=== PATIENT | female | born 1940 | race Hispanic/Latino ===

== ENCOUNTER 2017-03-17 18:53 | Inpatient (IN) | payer MEDICARE, OTHER ==
[2017-03-17] MEDS ORDERED: Sodium Chloride 0.9% 1,000 ML IV STA (19:23)
[2017-03-17 19:26] LABS: ADD MANUAL DIFF? NO
--- NOTE | 2017-03-17 19:26 | ED PDOC ---
Arrival/HPI - General Chief Complaint: GI Problem Time Seen by Provider: 03/17/17 19:09 Historian: Patient - History of Present Illness Narrative History of Present Illness (Text): 03/17/17 19:05 Анна Duron is a 76 year old female, whose past medical history includes hypertension, who presents to the Emergency department complaining of sudden onset of rectal bleeding 1 hour prior to arrival. Patient states she still feels mild oozing that is persistent. Patient reports associated cramping abdominal discomfort. Patient denies any nausea, vomiting, fever, or any other complaints. Patient also complaining of some chest tightness and shortness of breath. Time/Duration: 1 hour Symptom Onset: Sudden Symptom Course: Unchanged Activities at Onset: Light Context: Home Past Medical History - Provider Review Nursing Documentation Reviewed: Yes - Infectious Disease Hx of Infectious Diseases: None - Tetanus Immunization Tetanus Immunization: Unknown - Cardiac Hx Cardiac Disorders: Yes Hx Hypertension: Yes - Pulmonary Hx Respiratory Disorders: No - Neurological Hx Neurological Disorder: No - HEENT Hx HEENT Disorder: No - Renal Hx Renal Disorder: No - Endocrine/Metabolic Hx Endocrine Disorders: No - Hematological/Oncological Hx Blood Disorders: No - Integumentary Hx Dermatological Disorder: No - Musculoskeletal/Rheumatological Hx Musculoskeletal Disorders: Yes Hx Arthritis: Yes Hx Falls: Yes Hx Fractures: Yes (left hip) Hx Unsteady Gait: Yes - Gastrointestinal Other/Comment: Diarrhea/blood stool - Genitourinary/Gynecological Hx Genitourinary Disorders: No - Psychiatric Hx Anxiety: Yes Hx Depression: Yes Hx Substance Use: No Other/Comment: stress, grandson recently - Surgical History Hx Cholecystectomy: Yes Other/Comment: left hip fx - Anesthesia Hx Anesthesia: Yes Hx Anesthesia Reactions: No Hx Malignant Hyperthermia: No - Suicidal Assessment Feels Threatened In Home Enviroment: No Family/Social History - Physician Review Nursing Documentation Reviewed: Yes Family/Social History: No Known Family HX Smoking Status: Never Smoked Hx Alcohol Use: No Hx Substance Use: No Hx Substance Use Treatment: No Allergies/Home Meds Allergies/Adverse Reactions: Allergies No Known Allergies Allergy (Verified 03/17/17 18:55) Home Medications: Home Meds Medication Instructions Recorded Confirmed Amlodipine Besylate/Benazepr 1 cap PO HS 07/28/14 03/17/17 [Lotrel 10 mg-20 mg] Review of Systems - Physician Review All systems were reviewed & negative as marked: Yes - Review of Systems Constitutional: Normal. absent: Fevers Eyes: Normal ENT: Normal Respiratory: SOB Cardiovascular: Chest Pain Gastrointestinal: Abdominal Pain, Other (+rectal bleeding) Genitourinary Female: Normal. absent: Dysuria Musculoskeletal: Normal. absent: Back Pain, Neck Pain Skin: Normal. absent: Rash Neurological: Normal. absent: Headache, Dizziness Endocrine: Normal Hemo/Lymphatic: Normal Psychiatric: Normal Physical Exam Vital Signs Reviewed: Yes Vital Signs Temp Pulse Resp BP Pulse Ox 03/17/17 20:02 187/92 H 03/17/17 18:58 97.9 F 79 16 243/98 H 99 Temperature: Afebrile Blood Pressure: Hypertensive Pulse: Regular Respiratory Rate: Normal Appearance: Positive for: Well-Appearing, Non-Toxic, Comfortable Pain Distress: None Mental Status: Positive for: Alert and Oriented X 3 - Systems Exam Head: Present: Atraumatic, Normocephalic Pupils: Present: PERRL Extroacular Muscles: Present: EOMI Conjunctiva: Present: Normal Mouth: Present: Moist Mucous Membranes Neck: Present: Normal Range of Motion Respiratory/Chest: Present: Clear to Auscultation, Good Air Exchange. No: Respiratory Distress, Accessory Muscle Use Cardiovascular: Present: Regular Rate and Rhythm, Normal S1, S2. No: Murmurs Abdomen: Present: Normal Bowel Sounds. No: Tenderness, Distention, Peritoneal Signs Rectal: Present: Gross Blood (Gross rectal blood present, minimal active bleeding) Upper Extremity: Present: Normal Inspection. No: Cyanosis, Edema Lower Extremity: Present: Normal Inspection. No: Edema Neurological: Present: GCS=15, CN II-XII Intact, Speech Normal Skin: Present: Warm, Dry, Normal Color. 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 Plan: -- EKG -- Chest X-ray -- Labs, cardiac enzymes, lipase, amylase, blood type and screen -- UA -- IV fluids -- Reassess and disposition Prior Visits: Notes and results from previous visits were reviewed. Progress Notes: 03/17/17 19:55 Reviewed radiology, Chest X-ray shows no active disease. Patient had a recurrent gush of BRBPR in the emergency depart Case was discussed with Dr. Yaniv Good, who is aware and agrees with plan. Requests Dr. Mills and Dr. Sen on consult. 03/17/17 20:[address] Mills GI, who agrees with bleeding scan. Recommends NG-tube lavage if bleeding scan in negative. 03/17/17 20:01 Spoke with rn surgical pcu conveyor maintenance mechanic, who is aware and agrees with plan. 03/17/17 22:57 Patient had another episode of bleeding in Bleeding scan. Repeat CBC was hemolyzed - will obtain another specimen for repeat H/H. Case was discussed with Dr. Kelly for ICU Consult. - Critical Care Critical Care Minutes: 30 minutes - Lab Interpretations Lab Results: 03/17/17 19:07 03/17/17 19:07 Lab Results 03/17/17 19:55: Blood Type O POSITIVE, Antibody Screen Negative, BBK History Checked Patient has bt 03/17/17 19:07: Sodium 143, Potassium 3.7, Chloride 108 H, Carbon Dioxide 24, Anion Gap 15, BUN 16, Creatinine 0.8, Est GFR ( Amer) > 60, Est GFR (Non- Af Amer) > 60, Random Glucose 109, Calcium 11.5 H, Total Bilirubin 0.6, AST 22, ALT 26, Alkaline Phosphatase 117, Lactate Dehydrogenase 560, Total Creatine Kinase 71, Troponin I < 0.01, Total Protein 7.5, Albumin 4.3, Globulin 3.3, Albumin/Globulin Ratio 1.3, Amylase 73, Lipase 82 03/17/17 19:07: PT 10.4, INR 0.96, APTT 25.2 03/17/17 19:07: WBC 5.7 D, RBC 4.69, Hgb 14.0, Hct 41.3, MCV 88.1, MCH 29.9, MCHC 33.9, RDW 13.9, Plt Count 206, MPV 11.4 H, Gran % 50.1, Lymph % (Auto) 36.5 H, [place] % (Auto) 9.2 H, Eos % (Auto) 3.7, Baso % (Auto) 0.5, Gran # 2.84, Lymph # 2.1, [place] # 0.5, Eos # 0.2, Baso # 0.03 I have reviewed the lab results: Yes - RAD Interpretation Radiology Orders: 03/17/17 19:20 CHEST PORTABLE [RAD] Stat 03/17/17 19:55 GI BLEEDING SCAN W/ FLOW [NM] Stat Costumed Character: ED Physician - EKG Interpretation EKG Interpretation (Text): 03/17/17 22:59 NSR @ 70; no ST/T changes; normal intervals; normal axis. Interpreted by ED Physician: Yes Type: 12 lead EKG - Medication Orders Current Medication Orders: Discontinued Medications Sodium Chloride (Sodium Chloride 0.9%) 1,000 mls @ 999 mls/hr IV .Q1H1M STA Stop: 03/17/17 20:23 Last Admin: 03/17/17 19:30 Dose: 999 mls/hr Iohexol (Omnipaque 350 100 Ml) Confirm Administered Dose 350 mg .ROUTE .STK-MED ONE Stop: 03/17/17 20:08 - Scribe Statement The provider has reviewed the documentation as recorded by the Scribrajiv Bolanos All medical record entries made by the Alvertoibrajiv were at my direction and personally dictated by me. I have reviewed the chart and agree that the record accurately reflects my personal performance of the history, physical exam, medical decision making, and the department course for this patient. I have also personally directed, reviewed, and agree with the discharge instructions and disposition. Disposition/Present on Arrival - Present on Arrival Any Indicators Present on Arrival: No History of DVT/PE: No History of Uncontrolled Diabetes: No Urinary Catheter: No History of Decub. Ulcer: No History Surgical Site Infection Following: Orthopedic Procedures - Disposition Have Diagnosis and Disposition been Completed?: Yes Diagnosis: Rectal bleed Disposition: HOSPITALIZED Disposition Time: 21:50 Patient Plan: Admission Patient Problems: Current Active Problems Problem Status Onset Rectal bleed Acute Condition: SERIOUS
[2017-03-17 19:34] LABS: BASO # 0.03 K/mm3 (0.0-2.0); BASO % 0.5 % (0.0-3.0); EOS # 0.2 (0.0-0.7); EOS % 3.7 % (1.5-5.0); GRAN # 2.84 (1.4-6.5); GRAN % 50.1 % (50.0-68.0); HEMATOCRIT 41.3 % (36.0-48.0); LYMPH # 2.1 (1.2-3.4); LYMPH % 36.5 % (22.0-35.0); MEAN CELL VOLUME 88.1 fL (80.0-105.0); MEAN CORPUSCULAR HEMOGLOBIN 29.9 pg (25.0-35.0); MEAN CORPUSCULAR HGB CONC 33.9 g/dl (31.0-37.0); MEAN PLATELET VOLUME 11.4 fl (7.0-11.0); MONO # 0.5 (0.1-0.6); MONO % 9.2 % (1.0-6.0); PLATELET COUNT 206 10^3/uL (120.0-450.0); RED CELL DISTRIBUTION WIDTH 13.9 % (11.5-14.5); WHITE BLOOD COUNT 5.7 10^3/ul (4.5-11.0)
[2017-03-17 19:41] LABS: ALB/GLOB RATIO 1.3 (1.1-1.8); ALKALINE PHOSPHATASE 117 U/L (38-133); ALT/SGPT 26 U/L (7-56); AMYLASE 73 U/L (35-125); AST/SGOT 22 U/L (15-39); BILIRUBIN,TOTAL 0.6 mg/dL (0.2-1.3); BLOOD UREA NITROGEN 16 mg/dL (7-21); CALCIUM 11.5 mg/dL (8.4-10.5); CARBON DIOXIDE 24 mmol/L (21-33); CHLORIDE 108 mmol/L (98-107); GFR AFRICAN-AMERICAN > 60; GLUCOSE,RANDOM 109 mg/dL (70-110); INR 0.96 (0.93-1.08); LIPASE 82 U/L (23-300); PARTIAL THROMBOPLASTIN TIME 25.2 Seconds (23.7-30.8); POTASSIUM 3.7 mmol/L (3.6-5.0); SODIUM 143 mmol/L (132-148); TOTAL PROTEIN 7.5 g/dL (5.8-8.3)
[2017-03-17 19:53] LABS: TROPONIN I < 0.01 ng/mL
[2017-03-17] MEDS ORDERED: Iohexol 350 MG/100 ML VIAL ONE (20:07)
--- NOTE | 2017-03-17 20:48 | CP.PCM.CON ---
History of Present Illness - History of Present Illness History of Present Illness: Surgery Consult: Dr. Sen Pt is a 76F with PMHx of HTN & arthritis who presented to [facility] [place] for bright red blood per rectum. Pt states that earlier this evening she felt an urge to have a BM and felt a gush of fluid which was blood. States she saw bright red blood in the toilet bowl with dark clots mixed in. She also admits to having some lower abdominal pain which prompted her to call her PMD and she was instructed to come to the ER. Pt admits to having a similar episode in the past, but it wasn't as severe and she was told at the time she had hemorrhoids. In the ER, pt had another episode of bloody discharge per rectum. She denies any other associated symptoms and states her abdominal discomfort which was mostly supra-pubic has now resolved. Pt states her last colonoscopy was 5-6 years ago and was normal. She admits to occasional constipation. Denies N/V, F/C , chest pain, SOB or dizziness. PMHx: HTN, arthritis PSHx: Left hip replacement, R shoulder sx, cholecystectomy, R breast cyst excision SocialHx: denies smoking, EtOH NKDA Review of Systems - Review of Systems All systems: reviewed and no additional remarkable complaints except (as per HPI ) Past Patient History - Infectious Disease Hx of Infectious Diseases: None - Tetanus Immunizations Tetanus Immunization: Unknown - Past Social History Smoking Status: Never Smoked - CARDIAC Hx Cardiac Disorders: Yes Hx Hypertension: Yes - PULMONARY Hx Respiratory Disorders: No - NEUROLOGICAL Hx Neurological Disorder: No - HEENT Hx HEENT Problems: No - RENAL Hx Chronic Kidney Disease: No - ENDOCRINE/METABOLIC Hx Endocrine Disorders: No - HEMATOLOGICAL/ONCOLOGICAL Hx Blood Disorders: No - INTEGUMENTARY Hx Dermatological Problems: No - MUSCULOSKELETAL/RHEUMATOLOGICAL Hx Musculoskeletal Disorders: Yes Hx Arthritis: Yes Hx Falls: Yes Hx Fractures: Yes (left hip) Hx Unsteady Gait: Yes - GASTROINTESTINAL Other/Comment: Diarrhea/blood stool - GENITOURINARY/GYNECOLOGICAL Hx Genitourinary Disorders: No - PSYCHIATRIC Hx Anxiety: Yes Hx Substance Use: No - SURGICAL HISTORY Hx Cholecystectomy: Yes Other/Comment: left hip fx - ANESTHESIA Hx Anesthesia: Yes Hx Anesthesia Reactions: No Hx Malignant Hyperthermia: No Meds Allergies/Adverse Reactions: Allergies Allergy/AdvReac Type Severity Reaction Status Date / Time No Known Allergies Allergy Verified 03/17/17 18:55 Physical Exam - Constitutional Appears: Well, No Acute Distress - Head Exam Head Exam: ATRAUMATIC, NORMOCEPHALIC - Eye Exam Eye Exam: Normal appearance - ENT Exam ENT Exam: Mucous Membranes Moist - Respiratory Exam Respiratory Exam: NORMAL BREATHING PATTERN - Cardiovascular Exam Cardiovascular Exam: RRR - GI/Abdominal Exam GI & Abdominal Exam: Soft, Tenderness (LLQ). absent: Distended, Guarding, Rebound - Rectal Exam Rectal Exam: Hemorrhoids Additional comments: BRBPR - Extremities Exam Extremities exam: Negative for: tenderness - Neurological Exam Neurological exam: Alert, Oriented x3 - Skin Skin Exam: Dry, Warm Results - Vital Signs Recent Vital Signs: Last Vital Signs Temp 97.9 F 03/17/17 18:58 Pulse 79 03/17/17 18:58 Resp 16 03/17/17 18:58 BP 187/92 H 03/17/17 20:02 Pulse Ox 99 03/17/17 18:58 - Labs Result Diagrams: 03/17/17 19:07 03/17/17 19:07 Labs: Laboratory Results - last 24 hr 03/17/17 03/17/17 03/17/17 19:07 19:07 19:07 WBC 5.7 D RBC 4.69 Hgb 14.0 Hct 41.3 MCV 88.1 MCH 29.9 MCHC 33.9 RDW 13.9 Plt Count 206 MPV 11.4 H Gran % 50.1 Lymph % (Auto) 36.5 H [place] % (Auto) 9.2 H Eos % (Auto) 3.7 Baso % (Auto) 0.5 Gran # 2.84 Lymph # 2.1 [place] # 0.5 Eos # 0.2 Baso # 0.03 PT 10.4 INR 0.96 APTT 25.2 Sodium 143 Potassium 3.7 Chloride 108 H Carbon Dioxide 24 Anion Gap 15 BUN 16 Creatinine 0.8 Est GFR ( Amer) > 60 Est GFR (Non-Af Amer) > 60 Random Glucose 109 Calcium 11.5 H Total Bilirubin 0.6 AST 22 ALT 26 Alkaline Phosphatase 117 Lactate Dehydrogenase 560 Total Creatine Kinase 71 Troponin I < 0.01 Total Protein 7.5 Albumin 4.3 Globulin 3.3 Albumin/Globulin Ratio 1.3 Amylase 73 Lipase 82 BBK History Checked 03/17/17 19:55 WBC RBC Hgb Hct MCV MCH MCHC RDW Plt Count MPV Gran % Lymph % (Auto) [place] % (Auto) Eos % (Auto) Baso % (Auto) Gran # Lymph # [place] # Eos # Baso # PT INR APTT Sodium Potassium Chloride Carbon Dioxide Anion Gap BUN Creatinine Est GFR ( Amer) Est GFR (Non-Af Amer) Random Glucose Calcium Total Bilirubin AST ALT Alkaline Phosphatase Lactate Dehydrogenase Total Creatine Kinase Troponin I Total Protein Albumin Globulin Albumin/Globulin Ratio Amylase Lipase BBK History Checked Patient has bt Assessment & Plan - Assessment and Plan (Free Text) Assessment: 76F with GI bleed Plan: - H/H currently stable; continue to monitor serial H/H - f/u CT abdomen/pelvis - f/u bleeding scan - GI is on board - Will continue to monitor closely along with GI incase surgical intervention is needed - d/w Dr. Mckinley Richards, PGY-2 Surgery
[2017-03-17 23:39] LABS: ADD MANUAL DIFF? NO
[2017-03-17 23:58] LABS: BASO # 0.02 K/mm3 (0.0-2.0); BASO % 0.4 % (0.0-3.0); EOS # 0.2 (0.0-0.7); EOS % 4.6 % (1.5-5.0); GRAN # 3.02 (1.4-6.5); HEMATOCRIT 37.4 % (36.0-48.0); LYMPH # 1.4 (1.2-3.4); LYMPH % 27.6 % (22.0-35.0); MEAN CELL VOLUME 87.8 fL (80.0-105.0); MEAN CORPUSCULAR HEMOGLOBIN 29.3 pg (25.0-35.0); MEAN CORPUSCULAR HGB CONC 33.4 g/dl (31.0-37.0); MEAN PLATELET VOLUME 11.4 fl (7.0-11.0); MONO # 0.5 (0.1-0.6); MONO % 9.4 % (1.0-6.0); PLATELET COUNT 184 10^3/uL (120.0-450.0); RED CELL DISTRIBUTION WIDTH 13.9 % (11.5-14.5); WHITE BLOOD COUNT 5.2 10^3/ul (4.5-11.0)
[2017-03-18] MEDS: Sodium Chloride 0.9% 1,000 ML IV SCH ×2 (01:00→16:26)
[2017-03-18] MEDS: Pantoprazole 40mg/100ml IVPB 40 MG/100 ML BAG IVPB SCH ×5 (01:00→23:30)
--- NOTE | 2017-03-18 01:43 | CP.PCM.CON ---
<Klaus Martinez - Last Filed: 03/18/17 01:27> History of Present Illness - History of Present Illness History of Present Illness: ICU Consult Note for Dr. Kelly 76 y/o F with PMH of HTN and osteoarthritis presents to the ED after bloody bowel movement at home. Pt was at home when she felt like she had gas. Pt felt like she had some incontinence and went to bathroom and noticed there was blood all over her underwear and clothes. Pt immediately called her PMD who advised her to come to the hospital. At home, pt had 4 total episodes of bright red bloody bowel movements. Pt did not have any pain, dizziness, or weakness associated with bowel movements. In the ED, pt had 3 more bouts of bloody bowel movements. Pt also at this time did not develop any other symptoms or have any complaints. Pt denies CP, SOB, N/V/D, dizziness, syncope, fatigue. PMH: HTN, Osteoarthritis Surgical Hx: Left hip replacement, cholecystectomy Social Hx: Denies Alcohol, drugs, or tobacco. Allergies: NKDA Medication: Lotrel Review of Systems - Constitutional Constitutional: absent: Fatigue, Fever - EENT Eyes: absent: Blurred Vision, Change in Vision Nose/Mouth/Throat: absent: Nasal Congestion, Nasal Discharge - Cardiovascular Cardiovascular: absent: Chest Pain, Irregular Heart Rhythm - Respiratory Respiratory: absent: Cough, Dyspnea - Gastrointestinal Gastrointestinal: absent: Abdominal Pain, Diarrhea, Vomiting - Genitourinary Genitourinary: absent: Dysuria, Hematuria - Integumentary Integumentary: absent: New Lesions, Rash - Neurological Neurological: absent: Numbness, Syncope, Tingling Past Patient History - Infectious Disease Hx of Infectious Diseases: None - Tetanus Immunizations Tetanus Immunization: Unknown - Past Social History Smoking Status: Never Smoked - CARDIAC Hx Cardiac Disorders: Yes Hx Hypertension: Yes - PULMONARY Hx Respiratory Disorders: No - NEUROLOGICAL Hx Neurological Disorder: No - HEENT Hx HEENT Problems: No - RENAL Hx Chronic Kidney Disease: No - ENDOCRINE/METABOLIC Hx Endocrine Disorders: No - HEMATOLOGICAL/ONCOLOGICAL Hx Blood Disorders: No - INTEGUMENTARY Hx Dermatological Problems: No - MUSCULOSKELETAL/RHEUMATOLOGICAL Hx Musculoskeletal Disorders: Yes Hx Arthritis: Yes Hx Falls: Yes Hx Fractures: Yes (left hip) Hx Unsteady Gait: Yes - GASTROINTESTINAL Other/Comment: Diarrhea/blood stool - GENITOURINARY/GYNECOLOGICAL Hx Genitourinary Disorders: No - PSYCHIATRIC Hx Anxiety: Yes Hx Depression: Yes Hx Substance Use: No Other/Comment: stress, grandson recently - SURGICAL HISTORY Hx Cholecystectomy: Yes Other/Comment: left hip fx - ANESTHESIA Hx Anesthesia: Yes Hx Anesthesia Reactions: No Hx Malignant Hyperthermia: No Meds Allergies/Adverse Reactions: Allergies Allergy/AdvReac Type Severity Reaction Status Date / Time No Known Allergies Allergy Verified 03/17/17 18:55 - Medications Medications: Current Medications Hydralazine HCl (Apresoline) 10 mg IVP Q6 PRN PRN Reason: Systolic Blood Pressure Pantoprazole Sodium (Protonix 40mg Ivpb) 40 mg in 100 mls @ 20 mls/hr IVPB .Q5H [facility] Sodium Chloride (Sodium Chloride 0.9%) 1,000 mls @ 100 mls/hr IV .Q10H [facility] Ondansetron HCl (Zofran Inj) 4 mg IVP Q4H PRN PRN Reason: Nausea/Vomiting Physical Exam - Constitutional Appears: Well, No Acute Distress - Head Exam Head Exam: ATRAUMATIC, NORMAL INSPECTION, NORMOCEPHALIC - Eye Exam Eye Exam: EOMI, Normal appearance, PERRL - ENT Exam ENT Exam: Mucous Membranes Moist, Normal Exam - Neck Exam Neck exam: Positive for: Normal Inspection. Negative for: Lymphadenopathy - Respiratory Exam Respiratory Exam: Clear to Auscultation Bilateral, NORMAL BREATHING PATTERN. absent: Rales, Rhonchi, Wheezes - Cardiovascular Exam Cardiovascular Exam: RRR, +S1, +S2 - GI/Abdominal Exam GI & Abdominal Exam: Normal Bowel Sounds, Soft. absent: Tenderness - Extremities Exam Extremities exam: Positive for: normal inspection. Negative for: calf tenderness, pedal edema - Neurological Exam Neurological exam: Alert, CN II-XII Intact, Oriented x3 - Psychiatric Exam Psychiatric exam: Normal Affect, Normal Mood - Skin Skin Exam: Intact, Normal Color, Warm Results - Vital Signs Recent Vital Signs: Last Vital Signs Temp 97.7 F 03/17/17 23:30 Pulse 81 03/17/17 23:30 Resp 18 03/17/17 23:30 BP 199/94 H 03/17/17 23:30 Pulse Ox 99 03/17/17 23:30 - Labs Result Diagrams: 03/17/17 23:32 03/17/17 19:07 Labs: Laboratory Results - last 24 hr 03/17/17 23:32 WBC 5.2 RBC 4.26 Hgb 12.5 Hct 37.4 MCV 87.8 MCH 29.3 MCHC 33.4 RDW 13.9 Plt Count 184 MPV 11.4 H Gran % 58.0 Lymph % (Auto) 27.6 [place] % (Auto) 9.4 H Eos % (Auto) 4.6 Baso % (Auto) 0.4 Gran # 3.02 Lymph # 1.4 [place] # 0.5 Eos # 0.2 Baso # 0.02 Assessment & Plan - Assessment and Plan (Free Text) Plan: 76 y/o F with PMH of HTN and osteoarthritis presents to the ED with lower GI bleed. Pt received a GI bleed scan which showed a possible atypical rectal bleed (See full report). Pt also underwent a CT of abdomen/pelvis which showed sigmoid diverticuli and possible active rectal hemorrhage (See full report). According to surgery, pt is not a surgical candidate at this time. Pt will be monitored and surgery team will await recommendations of GI team and future colonoscopy. Pt will be admitted to the ICU for further monitoring of active lower GI bleed. Pt will be placed on protonix drip and have serial CBC's to monitor hemoglobin. Pt will be transfused if hg continues to drop. Neuro: AAOx3 Monitor for change in mental status Cardio: Hypertensive in ED Hydralazine prn Will restart home meds once pt is no longer NPO Maintain MAP >65 Hemodynamically stable at this time Pulm: No respiratory distress Maintain O2 sat >90% GI: NPO Protonix drip Monitor for bloody bowel movements Scans as stated above Will trend Hg Dr. Mills consulted Surgery, Dr. Sen consulted. Not a surgical candidate at this time Endo: Maintain euglycemia Nephro: Replace electrolytes as needed NS @ 100 Maintain euvolemia Heme/ID: Afebrile, no leukocytosis CBC q4h Monitor hg, will transfuse if Hg continues to fall Maintain normothermia PPX: Protonix drip Steven Blackman Seen, reviewed, and discussed with attending Juan, PGY-1 <Brandon Kelly Q - Last Filed: 03/18/17 03:28> Meds - Medications Medications: Current Medications Hydralazine HCl (Apresoline) 10 mg IVP Q6 PRN PRN Reason: Systolic Blood Pressure Pantoprazole Sodium (Protonix 40mg Ivpb) 40 mg in 100 mls @ 20 mls/hr IVPB .Q5H [facility] Last Admin: 03/18/17 01:00 Dose: 20 mls/hr Sodium Chloride (Sodium Chloride 0.9%) 1,000 mls @ 100 mls/hr IV .Q10H [facility] Last Admin: 03/18/17 01:00 Dose: 100 mls/hr Ondansetron HCl (Zofran Inj) 4 mg IVP Q4H PRN PRN Reason: Nausea/Vomiting Results - Vital Signs Recent Vital Signs: Last Vital Signs Temp 97.7 F 03/17/17 23:30 Pulse 81 03/18/17 02:41 Resp 18 03/18/17 02:41 BP 179/90 H 03/18/17 02:41 Pulse Ox 100 03/18/17 02:41 - Labs Result Diagrams: 03/17/17 23:32 03/17/17 19:07 Labs: Laboratory Results - last 24 hr 03/17/17 03/18/17 23:32 01:53 WBC 5.2 RBC 4.26 Hgb 12.5 Hct 37.4 MCV 87.8 MCH 29.3 MCHC 33.4 RDW 13.9 Plt Count 184 MPV 11.4 H Gran % 58.0 Lymph % (Auto) 27.6 [place] % (Auto) 9.4 H Eos % (Auto) 4.6 Baso % (Auto) 0.4 Gran # 3.02 Lymph # 1.4 [place] # 0.5 Eos # 0.2 Baso # 0.02 Urine Color Yellow Urine Appearance Clear Urine pH 7.0 Ur Specific [place] 1.010 Urine Protein Negative Urine Glucose (UA) Negative Urine Ketones Negative Urine Blood Trace-lysed H Urine Nitrate Negative Urine Bilirubin Negative Urine Urobilinogen 0.2 Ur Leukocyte Esterase Negative Urine RBC 0 - 2 Urine WBC 0 - 2 Ur Epithelial Cells 0 - 2 Attending/Attestation - Attestation I have personally seen and examined this patient.: Yes I have fully participated in the care of the patient.: Yes I have reviewed all pertinent clinical information: Yes Notes (Text): 03/18/17 03:24 I agree with the above mentioned note and exam by Dr. Martinez with the following additions/exceptions: 76 y/o pleasant Pashto female with a PMHx Htn, OA, internal hemorrhoids presents to the ED after 4 episodes of BRBPR some noted with dark clots. While in the ED patient had additional bloody bowel movements, however never had any episodes of hypotension, uncontrolled tachycardia, dyspnea or near syncope. She underwent a CT of the Abd/pelvis as well as a bleeding scan which reveal a lower source of rectal bleeding (possibly/likely her internal hemorrhoids). She is being hydrated with IVF, type'd and crossed; awaiting evaluation by GI. As for the Surgical service, they recommend further evaluation with a possible colonoscopy at this time. Hemodynamically stable at this time, will monitor closely; check cbc Q4h and transfuse as needed. Case discussed with Dr. Mendez (ED Physician) earlier labs and images reviewed (prelim readings for Abd/pelvis CT and bleeding scan reviewed) Total time of care: 35 minutes
[2017-03-18 01:58] LABS: URINE BILIRUBIN NEGATIVE (NEGATIVE); URINE BLOOD TRACE-LYSED (NEGATIVE); URINE GLUCOSE (UA) NEGATIVE (NEGATIVE); URINE KETONE NEGATIVE (NEGATIVE); URINE LEUKOCYTE ESTERASE NEGATIVE Leu/uL (NEGATIVE); URINE PROTEIN NEGATIVE mg/dL (<30 mg/dL); URINE UROBILINOGEN 0.2 E.U./dL (<1 E.U./dL)
[2017-03-18 02:14] LABS: URINE APPEARANCE CLEAR (CLEAR); URINE COLOR YELLOW (YELLOW)
[2017-03-18 02:25] LABS: URINE EPITHELIAL CELLS 0 - 2 /hpf (0-5); URINE RBC 0 - 2 /hpf (0-2); URINE WBC 0 - 2 /hpf (0-6)
[2017-03-18 04:24] VITALS: BMI 27.3
[2017-03-18 05:06] LABS: HEMATOCRIT 38.2 % (36.0-48.0); MEAN CELL VOLUME 87.4 fL (80.0-105.0); MEAN CORPUSCULAR HEMOGLOBIN 29.3 pg (25.0-35.0); MEAN CORPUSCULAR HGB CONC 33.5 g/dl (31.0-37.0); MEAN PLATELET VOLUME 11.5 fl (7.0-11.0); RED CELL DISTRIBUTION WIDTH 13.9 % (11.5-14.5); WHITE BLOOD COUNT 4.3 10^3/ul (4.5-11.0)
--- NOTE | 2017-03-18 08:09 | CT ---
PROCEDURE: CT Abdomen and Pelvis with and without IV contrast HISTORY: ABD CRAMPING WITH RECTAL BLEEDING COMPARISON: None. TECHNIQUE: 2.5 mm axial sections were acquired through the abdomen both prior to and following intravenous administration of contrast material. Contrast dose: 95 mL Omnipaque 350 Radiation dose: Total exam DLP = 1673.64 mGy-cm. This CT exam was performed using one or more of the following dose reduction techniques: Automated exposure control, adjustment of the mA and/or kV according to patient size, and/or use of iterative reconstruction technique. FINDINGS: LOWER THORAX: Several small nodules in both lower lobes, all 4 mm or less, unchanged. There is an 8 mm ground-glass opacity in the left lower lobe (series 2, image 22). This has questionably increased slightly in size from prior examination. There is a small solid component of this nodule. Because of this, followup noncontrast CT examination at 3 6 months is advised. This is as per Fleischner society criteria. Small hiatal hernia. LIVER: Normal size, contour and attenuation. Nonspecific 2 mm low-attenuation lesion in medial segment left hepatic lobe. GALLBLADDER AND BILE DUCTS: Status post cholecystectomy PANCREAS: Unremarkable. No gross lesion or ductal dilatation. SPLEEN: Unremarkable. ADRENALS: 10 mm low-density left adrenal nodule, 12 Hounsfield units. Consistent with adrenal adenoma. KIDNEYS AND URETERS: 3 mm nonobstructing left lower pole renal calculus. Right upper pole cortical cyst, 9 mm. Left lower pole cortical cyst, 7 mm. No hydronephrosis. VASCULATURE: Unremarkable. No aortic aneurysm. BOWEL: Mild mucosal thickening of gastric cardia common nonspecific. This could be artifactual due to inadequate distention. No bowel obstruction. Sigmoid diverticulosis without evidence of diverticulitis. There is retained high attenuation material, possibly oral contrast, within multiple sigmoid diverticulae. On postcontrast images, there is questionable focal enhancement seen on 113 through 115. This could represent post contrast blush of active hemorrhage or enhancing polyp. APPENDIX: Normal appendix. PERITONEUM: Unremarkable. No free fluid. No free air. LYMPH NODES: Unremarkable. No enlarged lymph nodes. BLADDER: Unremarkable. REPRODUCTIVE: Normal uterus. 3.3 cm right adnexal mass (series 5, image 124). Possibly this represents ovary. Recommend further evaluation with transvaginal pelvic ultrasound examination. BONES: No acute fracture. Thoracolumbar levoscoliosis. Multilevel degenerative disc disease. OTHER FINDINGS: None. IMPRESSION: Small focal enhancement seen within sigmoid colon as described. Possible focal active hemorrhage versus enhancing polyp. Small nonspecific nodules at lung bases, do not require follow-up. However, ground-glass partially solid nodule in left lower lobe should be followed up with noncontrast chest CT examination in 3-6 months. Small hiatal hernia. Possible mucosal thickening of gastric cardia. Nonspecific. 3.3 cm right adnexal mass. Recommend evaluation with transvaginal pelvic ultrasound examination. Preliminary interpretation of this examination was reported by [facility] at 11:50 p.m. on 03/17/2017. There is concurrence of this report with the preliminary interpretation.
--- NOTE | 2017-03-18 08:25 | RAD ---
HISTORY: shortness of breath chest tight COMPARISON: 12/25/2015 FINDINGS: LUNGS: No active pulmonary disease. PLEURA: No significant pleural effusion identified, no pneumothorax apparent. CARDIOVASCULAR: Normal. OSSEOUS STRUCTURES: No significant abnormalities. VISUALIZED UPPER ABDOMEN: Normal. OTHER FINDINGS: None. IMPRESSION: No active disease.
[2017-03-18 08:49] LABS: HEMATOCRIT 38.2 % (36.0-48.0); MEAN CELL VOLUME 87.2 fL (80.0-105.0); MEAN CORPUSCULAR HEMOGLOBIN 29.2 pg (25.0-35.0); MEAN CORPUSCULAR HGB CONC 33.5 g/dl (31.0-37.0); MEAN PLATELET VOLUME 12.5 fl (7.0-11.0); RED CELL DISTRIBUTION WIDTH 13.8 % (11.5-14.5); WHITE BLOOD COUNT 4.7 10^3/ul (4.5-11.0)
[2017-03-18 08:58] LABS: ALB/GLOB RATIO 1.2 (1.1-1.8); ALKALINE PHOSPHATASE 104 U/L (38-133); ALT/SGPT 28 U/L (7-56); AST/SGOT 18 U/L (15-39); BILIRUBIN,TOTAL 0.6 mg/dL (0.2-1.3); BLOOD UREA NITROGEN 10 mg/dL (7-21); CALCIUM 10.2 mg/dL (8.4-10.5); CARBON DIOXIDE 24 mmol/L (21-33); CHLORIDE 109 mmol/L (98-107); GFR AFRICAN-AMERICAN > 60; GLUCOSE,RANDOM 91 mg/dL (70-110); POTASSIUM 3.8 mmol/L (3.6-5.0); SODIUM 141 mmol/L (132-148); TOTAL PROTEIN 6.9 g/dL (5.8-8.3)
--- NOTE | 2017-03-18 09:44 | CP.PCM.PN ---
Subjective - Date & Time of Evaluation Date of Evaluation: 03/18/17 Time of Evaluation: 07:00 - Subjective Subjective: Surgery: Dr. Sen Pt seen and examined. No acute overnight events. States she's feeling ok however , continues to have bloody BMs. Denies other complaints at this time. Denies N/V , dizziness or lightheadedness. Objective - Vital Signs/Intake and Output Vital Signs (last 24 hours): Temp Pulse Resp BP Pulse Ox 98.4 F 95 H 17 187/86 H 100 03/18/17 04:26 03/18/17 07:20 03/18/17 07:20 03/18/17 06:53 03/18/17 02:41 Intake and Output: 03/18/17 03/18/17 06:59 18:59 Intake Total 300 Output Total 450 Balance -150 - Medications Medications: Current Medications Hydralazine HCl (Apresoline) 10 mg IVP Q6 PRN PRN Reason: Systolic Blood Pressure Last Admin: 03/18/17 03:33 Dose: 10 mg Pantoprazole Sodium (Protonix 40mg Ivpb) 40 mg in 100 mls @ 20 mls/hr IVPB .Q5H IRVIN Last Admin: 03/18/17 07:02 Dose: 20 mls/hr Sodium Chloride (Sodium Chloride 0.9%) 1,000 mls @ 100 mls/hr IV .Q10H IRVIN Last Admin: 03/18/17 01:00 Dose: 100 mls/hr Ondansetron HCl (Zofran Inj) 4 mg IVP Q4H PRN PRN Reason: Nausea/Vomiting - Labs Labs: 03/18/17 08:40 03/18/17 08:40 PT 10.4 Seconds (9.9-11.8) 03/17/17 19:07 INR 0.96 (0.93-1.08) 03/17/17 19:07 APTT 25.2 Seconds (23.7-30.8) 03/17/17 19:07 - Constitutional Appears: Well, No Acute Distress - Head Exam Head Exam: ATRAUMATIC, NORMOCEPHALIC - ENT Exam ENT Exam: Mucous Membranes Moist - Respiratory Exam Respiratory Exam: NORMAL BREATHING PATTERN - Cardiovascular Exam Cardiovascular Exam: Tachycardia - GI/Abdominal Exam GI & Abdominal Exam: Soft. absent: Distended, Guarding, Tenderness - Extremities Exam Extremities Exam: absent: Tenderness - Neurological Exam Neurological Exam: Alert, Awake, Oriented x3 - Skin Skin Exam: Dry, Intact, Warm Assessment and Plan - Assessment and Plan (Free Text) Assessment: 76F with GI bleed Plan: - H/H continues to be stable; will monitor - bleeding scan showed possible small active bleed in rectum; will follow up official report - discuss plan with Dr. Mills regarding colonoscopy - d/w Dr. Mckinley Richards, PGY-2 Surgery
--- NOTE | 2017-03-18 10:39 | CARD ---
APPROVED REPORT EKG Measurement Heart [id number] [place] 166P9 [id number] <Conclusion> Sinus rhythm Minimal voltage criteria for LVH, may be normal variant
--- NOTE | 2017-03-18 10:56 | CARD ---
APPROVED REPORT EKG Measurement Heart [id number] [place] 172P61 [id number] <Conclusion> Sinus rhythm with premature atrial complexes LVH by voltage Q in 3
[2017-03-18 11:36] LABS: HEMATOCRIT 35.4 % (36.0-48.0); MEAN CELL VOLUME 87.2 fL (80.0-105.0); MEAN CORPUSCULAR HEMOGLOBIN 29.3 pg (25.0-35.0); MEAN CORPUSCULAR HGB CONC 33.6 g/dl (31.0-37.0); MEAN PLATELET VOLUME 11.2 fl (7.0-11.0); RED CELL DISTRIBUTION WIDTH 13.9 % (11.5-14.5); WHITE BLOOD COUNT 3.8 10^3/ul (4.5-11.0)
[2017-03-18 11:37] LABS: VENOUS BLOOD GAS BASE EXCESS 0.1 mmol/L (0.0-2.0); VENOUS BLOOD PH 7.36 (7.32-7.43)
--- NOTE | 2017-03-18 12:16 | CON ---
DATE: 03/18/2017 HISTORY OF PRESENT ILLNESS: The patient is a 76-year-old lady without significant past medical history except for hypertension who presented to [facility] with sudden onset of bright red blood per rectum yesterday. She did not experience any lightheadedness, dizziness, shortness of breath or chest pain associated with it. She had 1 episode last year similar to that, but not to the same extent. The patient came to [facility] ER where GI bleeding scan as well as CAT scan was done, which confirmed lower gastrointestinal bleed. Surgical as well as GI consult was called. The patient did not have any signs of end organ dysfunction or hypovolemic shock. VBG with lactic acid is pending; however, troponin is negative, no chest pain, and EKG does not show specific signs of the chest pain. No nausea, no vomiting , no hemetemesis. PAST MEDICAL HISTORY: Hypertension. ALLERGIES: NKDA. SOCIAL HISTORY: The patient is a lifelong nonsmoker. No alcohol or illicit drug abuse. FAMILY HISTORY: Noncontributory. MEDICATIONS AT HOME: Lotrel. REVIEW OF SYSTEMS: Revealed 12 organ systems, other than mentioned in history of present illness is negative. PHYSICAL EXAMINATION: VITAL SIGNS: Heart rate 95, blood pressure 187/86, respiratory rate 17, oxygen saturation 100% on nasal cannula. HEAD AND NECK: Atraumatic. LUNGS: Clear to auscultation bilaterally. HEART: Regular rate and rhythm. S1, S2 normal. ABDOMEN: Soft, nontender, nondistended. MUSCULOSKELETAL: No C/C/E. NEUROLOGIC: The patient moves all extremities spontaneously. SKIN: Moist. PSYCHIATRIC: The patient is alert and oriented x 3. LABORATORY DATA: WBC 4.7, hemoglobin 12.8, platelet count 186. Sodium 141, potassium 3.8, chloride 109, carbon dioxide 24, BUN 10, creatinine 0.6, glucose 91. MEDICATIONS: Hydralazine p.r.n., Zofran p.r.n., Protonix, normal saline 100 mL per hour. CAT scan of the abdomen and pelvis revealed small focal enhancement seen within the sigmoid colon, possible focal active hemorrhage versus enhancing polyps. ASSESSMENT AND PLAN: This is a 76-year-old lady who presented with active lower gastrointestinal bleed without end-organ dysfunction, or signs of shock. At the present time will continue with n.p.o., IV fluids, serial CBC, GI evaluation to consider colonoscopy and surgery service followup. No chest pain. The patient is mentating well. VBG with lactic acid is pending. We will continue to target euvolemia, euglycemia, normothermia and oxygen saturation more than 90%. Deep venous thrombosis and gastrointestinal prophylaxis. Addendum: lactic acid 0.7. Ok to downgrade to tele ccm time 40 min Jadiel Dumont MD cc: [id number] TT: 03/18/2017 12:15:19 Confirmation # [id number] Dictation # [id number] hector SIMON
--- NOTE | 2017-03-18 12:18 | CON ---
DATE: 03/18/2017 Seen and examined at the bedside earlier today. The chart was reviewed. REQUEST FOR CONSULT: For GI bleed. HISTORY OF PRESENT ILLNESS: This is a 76-year-old female with a past medical history of osteoarthrit is, hypertension and colon polyps who came to the Emergency Room with complaints of bright red blood per rectum. The patient stated that she had some abdominal cramps, thought she had the urge to have a bowel movement, and first saw black reddish stool then bright red blood. She denies any history of gastrointestinal bleed in the past. No complaints of any abdominal pain except for the cramping zenon or to the bleeding. Denies any nausea, vomiting, shortness of breath or chest pain. Her last endosc opy and colonoscopy were about 5-[address] Bradley; reported to have colon polyps. No co mplaints of any shortness of breath, chest pain, epigastric discomfort or any weight loss or loss of appetite. PAST MEDICAL HISTORY: Colon polyps, hypertension, osteoarthritis. PAST SURGICAL HISTORY: She had left hip replacement, right shoulder surgery, cholecystectomy and [place] ast cyst excision. FAMILY HISTORY: Noncontributory at this time. ALLERGIES: No known drug allergies. MEDICATIONS: Reviewed as per MAR. REVIEW OF SYSTEMS: Systems reviewed with positive findings, see HPI. VITAL SIGNS: Temperature is 98.4, blood pressure 187/86, pulse 95, respirations 17. LABORATORY DATA: WBC 4.7, H and H are 12.8 and 38.2. On admission, her hemoglobin was 14.0. She d id report having bright red small amount bloody bowel movement this morning. Denies any current abdo mike pain, no nausea or vomiting. PT is 10.4, INR is 0.96 and PTT is 25.2. Sodium 141, K is 3.8, B UN is 10, creatinine 0.6. Her LFTs are within normal limits. She had troponin done which was negati ve x 1. Amylase 73 and lipase is 82. GI bleeding scan showed some punctuate pelvic activity. It se emed abnormal but does not ____ or confirm the contour of bowel; it is an atypical rectal bleeding. CT scan was also done of the abdomen and pelvis with IV contrast, and that showed some mild mucosal t hickening in the gastric cardia which is nonspecific, negative for bowel obstruction, does show some diverticulosis but no diverticulitis. She is noted to have multiple diverticula in the sigmoid, poss ible focal active hemorrhage versus enhancing polyp. She is noted to have a lung nodule. There is a n 8 mm ground glass opacity in the left lower lobe. This has questionably increased slightly in the size from prior exam. Also, there is a 3.3 cm right adnexal mass, possibly represents an ovary. Rec ommend transvaginal pelvic ultrasound exam. PHYSICAL EXAMINATION: HEENT: Sclerae are anicteric. NECK: Supple. CARDIAC: S1, S2. LUNGS SOUNDS: Clear. ABDOMEN: With bowel sounds. Soft, not distended. No tenderness appreciated on palpation. No rebou nd, guarding, or organomegaly. EXTREMITIES: Positive pedal pulses, no edema. NEUROLOGIC: Awake, alert, and oriented. ASSESSMENT: This is a 76-year-old female with a past medical history of colon polyps, hypertension, osteoarthritis, who came to the Emergency Room with complaints of bleeding per rectum, positive bleed ing scan with some activity in the pelvis, rule out diverticular bleed, rule out angiodysplasia. Rand g nodule; on CT patient is noted to have a lung nodule. PLAN: The patient will remain n.p.o. at this time. We will continue with Protonix drip. She is get ting normal saline at 100 for IV hydration and Zofran p.r.n. nausea. The patient would benefit from a colonoscopy in view of the bleeding. We will observe the patient at this time and likely prep the patient in the evening for colonoscopy. Spoke to the ICU resident, Dr. Humphries. Continue to monitor C BC; right now it is stable. She is for CBC q. 4 hours. She is also being followed by the surgical t eam. Thank you for this consult and for allowing us to participate in your patient's care. Will make furt her recommendations based upon the patient's clinical course. The patient was seen and case discusse d with Dr. Mills. Manisha PUENTES cc: [id number] TT: 03/18/2017 12:17:42 Confirmation # [id number] Dictation # [id number] mn
[2017-03-18] MEDS ORDERED: Peg-Electrolyte Oral Soln 4L (Golytely) PO ONE (16:00)
--- NOTE | 2017-03-18 16:18 | NM ---
PROCEDURE: Nuclear medicine gastrointestinal bleeding scan. HISTORY: rectal bleeding COMPARISON: None available. TECHNIQUE: 4 cc of patient blood was withdrawn and mixed with 25 mCi of technetium ultra tagged. Images of the abdomen and pelvis were obtained in the anterior projection at 1 min intervals over a period of 45 min. FINDINGS: Minimal punctate areas of increased activity can be seen in the pelvis. These could be within diverticula. There is no significant active bleed seen within bowel loops. Physiologic activity was seen in the heart, liver, spleen and blood vessels. The report concurs with the preliminary [facility] report IMPRESSION: No evidence of active gastrointestinal bleeding.
[2017-03-18 16:32] LABS: HEMATOCRIT 32.9 % (36.0-48.0); MEAN CELL VOLUME 88.2 fL (80.0-105.0); MEAN CORPUSCULAR HEMOGLOBIN 29.5 pg (25.0-35.0); MEAN CORPUSCULAR HGB CONC 33.4 g/dl (31.0-37.0); MEAN PLATELET VOLUME 11.5 fl (7.0-11.0); WHITE BLOOD COUNT 4.2 10^3/ul (4.5-11.0)
[2017-03-18 20:29] LABS: MEAN CELL VOLUME 87.2 fL (80.0-105.0); MEAN CORPUSCULAR HEMOGLOBIN 29.5 pg (25.0-35.0); MEAN CORPUSCULAR HGB CONC 33.8 g/dl (31.0-37.0); MEAN PLATELET VOLUME 11.2 fl (7.0-11.0); RED CELL DISTRIBUTION WIDTH 14.1 % (11.5-14.5); WHITE BLOOD COUNT 4.4 10^3/ul (4.5-11.0)
[2017-03-18] MEDS ORDERED: Amiodarone 150 mg/D5W 100 ml 150 MG/100 ML BAG ONE (23:23)
[2017-03-19 00:03] LABS: HEMATOCRIT 32.8 % (36.0-48.0); MEAN CELL VOLUME 86.3 fL (80.0-105.0); MEAN CORPUSCULAR HEMOGLOBIN 28.9 pg (25.0-35.0); MEAN CORPUSCULAR HGB CONC 33.5 g/dl (31.0-37.0); MEAN PLATELET VOLUME 11.3 fl (7.0-11.0); RED CELL DISTRIBUTION WIDTH 13.9 % (11.5-14.5); WHITE BLOOD COUNT 5.5 10^3/ul (4.5-11.0)
--- NOTE | 2017-03-19 00:10 | PN ---
DATE: 03/18/2017 ADDENDUM: This is an addendum to the GI consultation report dictated by Manisha Pina NP. SUBJECTIVE: The patient was seen and evaluated earlier, discussed with the resident and also with Dr Corbin Good. The patient had a few episodes of bright red blood per rectum since admission to ICU. However, hemodynamically remains stable. Hemoglobin remains 12.5. PHYSICAL EXAMINATION: ABDOMEN: Soft. There is no mass palpable. No tenderness. LABORATORY DATA: The CT AND nuclear medicine scans ARE reviewed. IMPRESSION: Most likely cause of this bleeding from in this 76-year-old patient is probably divertic ular. The differential diagnosis should include hemorrhoids, angiodysplasia and colonic neoplasia to be considered. The patient would benefit from colonoscopy and endoscopic evaluation. We will start the preparation in the early a.m. The procedure is scheduled in a.m. tomorrow. Thank you very much for allowing us to participate in the care of the patient. Jackelyn Mills MD cc: [id number] TT: 03/19/2017 00:09:56 Confirmation # [id number] Dictation # [id number] aram
[2017-03-19 00:12] LABS: ALB/GLOB RATIO 1.3 (1.1-1.8); ALKALINE PHOSPHATASE 97 U/L (38-133); ALT/SGPT 31 U/L (7-56); AST/SGOT 20 U/L (15-39); BILIRUBIN,TOTAL 0.9 mg/dL (0.2-1.3); BLOOD UREA NITROGEN 11 mg/dL (7-21); CALCIUM 10.7 mg/dL (8.4-10.5); CARBON DIOXIDE 21 mmol/L (21-33); CHLORIDE 111 mmol/L (98-107); GFR AFRICAN-AMERICAN > 60; GLUCOSE,RANDOM 112 mg/dL (70-110); MAGNESIUM 1.8 mg/dL (1.7-2.2); POTASSIUM 3.5 mmol/L (3.6-5.0); SODIUM 141 mmol/L (132-148)
[2017-03-19] MEDS: Sodium Chloride 0.9% 1,000 ML IV SCH (01:10)
[2017-03-19] MEDS: Pantoprazole 40mg/100ml IVPB 40 MG/100 ML BAG IVPB SCH ×3 (04:24→20:05)
[2017-03-19 06:05] LABS: MEAN CELL VOLUME 86.4 fL (80.0-105.0); MEAN CORPUSCULAR HEMOGLOBIN 29.2 pg (25.0-35.0); MEAN CORPUSCULAR HGB CONC 33.9 g/dl (31.0-37.0); MEAN PLATELET VOLUME 11.4 fl (7.0-11.0)
[2017-03-19 06:20] LABS: ALB/GLOB RATIO 1.3 (1.1-1.8); ALKALINE PHOSPHATASE 85 U/L (38-133); ALT/SGPT 32 U/L (7-56); AST/SGOT 18 U/L (15-39); BILIRUBIN,TOTAL 0.6 mg/dL (0.2-1.3); BLOOD UREA NITROGEN 10 mg/dL (7-21); CALCIUM 10.1 mg/dL (8.4-10.5); CARBON DIOXIDE 22 mmol/L (21-33); CHLORIDE 112 mmol/L (98-107); GFR AFRICAN-AMERICAN > 60; GLUCOSE,RANDOM 106 mg/dL (70-110); SODIUM 142 mmol/L (132-148); TOTAL PROTEIN 5.7 g/dL (5.8-8.3)
[2017-03-19 06:38] LABS: INR 1.04 (0.93-1.08)
[2017-03-19] MEDS ORDERED: Potassium Chloride 20 mEq ER Tab PO ONE (09:09)
--- NOTE | 2017-03-19 09:09 | CP.PCM.PN ---
Subjective - Date & Time of Evaluation Date of Evaluation: 03/19/17 Time of Evaluation: 07:00 - Subjective Subjective: Surgery: Dr. Sen Pt seen and examined. No acute events overnight. States she feels better and bleeding has slowed down. Denies abdominal pain, dizziness, or F/C. Objective - Vital Signs/Intake and Output Vital Signs (last 24 hours): Temp Pulse Resp BP Pulse Ox 97.8 F 96 H 24 190/120 H 100 03/19/17 04:00 03/19/17 06:49 03/19/17 06:30 03/19/17 06:49 03/19/17 00:50 Intake and Output: 03/19/17 03/19/17 06:59 18:59 Intake Total 1440 Balance 1440 - Medications Medications: Current Medications Hydralazine HCl (Apresoline) 10 mg IVP Q6 PRN PRN Reason: Systolic Blood Pressure Last Admin: 03/18/17 03:33 Dose: 10 mg Pantoprazole Sodium (Protonix 40mg Ivpb) 40 mg in 100 mls @ 20 mls/hr IVPB .Q5H IRVIN Last Admin: 03/19/17 04:24 Dose: 20 mls/hr Sodium Chloride (Sodium Chloride 0.9%) 1,000 mls @ 100 mls/hr IV .Q10H IRVIN Last Admin: 03/19/17 01:10 Dose: 100 mls/hr Potassium Chloride (Potassium Chloride 20 Meq/100 Ml) 20 meq in 100 mls @ 50 mls/hr IVPB Q2H IRVIN Stop: 03/19/17 12:29 Last Admin: 03/19/17 08:52 Dose: 50 mls/hr Ondansetron HCl (Zofran Inj) 4 mg IVP Q4H PRN PRN Reason: Nausea/Vomiting - Labs Labs: 03/19/17 05:15 03/19/17 05:15 PT 11.2 Seconds (9.9-11.8) 03/19/17 05:15 INR 1.04 (0.93-1.08) 03/19/17 05:15 APTT 25.2 Seconds (23.7-30.8) 03/17/17 19:07 - Constitutional Appears: Well, No Acute Distress - Head Exam Head Exam: ATRAUMATIC, NORMOCEPHALIC - Eye Exam Eye Exam: Normal appearance - ENT Exam ENT Exam: Mucous Membranes Moist - Respiratory Exam Respiratory Exam: NORMAL BREATHING PATTERN - Cardiovascular Exam Cardiovascular Exam: Tachycardia - GI/Abdominal Exam GI & Abdominal Exam: Soft. absent: Guarding, Tenderness - Extremities Exam Extremities Exam: absent: Tenderness - Neurological Exam Neurological Exam: Alert, Awake, Oriented x3 - Skin Skin Exam: Dry, Warm Assessment and Plan - Assessment and Plan (Free Text) Assessment: 76F with GI bleed Plan: - cont to monitor H/H - pt going for colonoscopy today, will f/u - d/w Dr. Mckinley Richards, PGY-2 Surgery
--- NOTE | 2017-03-19 11:51 | CARD ---
APPROVED REPORT EKG Measurement Heart [id number] 164P32 [id number] <Conclusion> Normal sinus rhythm Minimal voltage criteria for LVH, may be normal variant Nonspecific ST and T wave abnormality Prolonged QT
--- NOTE | 2017-03-19 12:00 | CARD ---
APPROVED REPORT EKG Measurement Heart [id number] [place] 162P74 [id number] <Conclusion> Sinus tachycardia with premature supraventricular complexes PRWP ST & T wave abnormality c/w ischemia Prolonged QTc.
--- NOTE | 2017-03-19 12:19 | CP.CCUPN ---
<Madeline Renee - Last Filed: 03/19/17 12:30> CCU Subjective - Physician Review Events Since Last Encounter (Free Text): 03/19/17 12:14 Patient s/e at bedside this AM. Patient was stable yesterday but then developed epigastric/lower central burning chest pain and HTN/tachycardia overnight. EKG showed PAC's but not ST elevations. Patient was started on hydralazine PRN and her HR and BP trended down to 152/61 this AM. Chest pain is resolved, now only complaint is persistent diarrhea with several bloodly bowel movements overnight and a headache. Patient is supposed to go for EGD and colonoscopy today to diagnose/treat GI bleed but she is acutely hypokalemic with K of 3.0. CCU Objective - Vital Signs / Intake & Output Intake and Output (Last 8hrs): Intake & Output 03/18/17 03/19/17 03/19/17 22:59 06:59 14:59 Intake Total 1440 Balance 1440 Weight 78.653 kg Intake: IV 1200 Right Forearm 1200 Oral 0 Other 240 Other: Voiding Method Bedside Commode # Bowel Movements 10 - Physical Exam Head: Positive for: Atraumatic, Normocephalic Pupils: Positive for: PERRL Extroacular Muscles: Positive for: EOMI Conjunctiva: Positive for: Normal Mouth: Positive for: Moist Mucous Membranes Pharnyx: Positive for: Normal Neck: Positive for: Normal Range of Motion. Negative for: MIDLINE TENDERNESS, Paraspinal Tenderness Respiratory/Chest: Positive for: Clear to Auscultation, Good Air Exchange. Negative for: Respiratory Distress, Accessory Muscle Use Cardiovascular: Positive for: Regular Rate and Rhythm, Normal S1, S2. Negative for: Murmurs Abdomen: Positive for: Normal Bowel Sounds, Other (epigastris tenderness to palpation). Negative for: Tenderness, Distention, Peritoneal Signs Back: Positive for: Normal Inspection Upper Extremity: Positive for: Normal Inspection. Negative for: Cyanosis, Edema Lower Extremity: Positive for: Normal Inspection. Negative for: Edema Neurological: Positive for: GCS=15, CN II-XII Intact, Speech Normal Skin: Positive for: Warm, Dry, Normal Color. Negative for: Rashes Psychiatric: Positive for: Alert, Oriented x 3, Normal Insight, Normal Concentration - Medications Active Medications: Active Medications Generic Name Dose Route Start Last Admin Trade Name Juan A PRN Reason Stop Dose Admin Hydralazine HCl 10 mg 03/18/17 01:21 03/18/17 03:33 Apresoline IVP 10 mg Q6 PRN Administration Systolic Blood Pressure Pantoprazole Sodium 40 mg in 100 mls @ 20 mls/hr 03/18/17 00:45 03/19/17 04: 24 Protonix 40mg Ivpb IVPB 20 mls/hr .Q5H IRVIN Administration Sodium Chloride 1,000 mls @ 100 mls/hr 03/18/17 00:45 03/19/17 01:10 Sodium Chloride 0.9% IV 100 mls/hr .Q10H IRVIN Administration Potassium Chloride 20 meq in 100 mls @ 50 mls/hr 03/19/17 08:30 03/19/17 09: 39 Potassium Chloride 20 Meq/100 Ml IVPB 03/19/17 12:29 50 mls/hr Q2H IRVIN Administration Ondansetron HCl 4 mg 03/18/17 00:45 Zofran Inj IVP Q4H PRN Nausea/Vomiting - Patient Studies Lab Studies: Microbiology Studies 03/18/17 05:30 MRSA Culture (Admit) - Final Nose MRSA NOT DETECTED Lab Studies 03/19/17 03/19/17 03/19/17 Range/Units 07:50 06:00 05:15 WBC 5.0 (4.5-11.0) 10^3/ul RBC 3.59 (3.5-6.1) 10^6/uL Hgb 10.5 L (12.0-16.0) gm/dL Hct 31.0 L (36.0-48.0) % MCV 86.4 (80.0-105.0) fL MCH 29.2 (25.0-35.0) pg MCHC 33.9 (31.0-37.0) g/dl RDW 14.0 (11.5-14.5) % Plt Count 169 (120.0-450.0) 10^3/uL MPV 11.4 H (7.0-11.0) fl PT (9.9-11.8) Seconds INR (0.93-1.08) Sodium (132-148) mmol/L Potassium (3.6-5.0) mmol/L Chloride (98-107) mmol/L Carbon Dioxide (21-33) mmol/L Anion Gap (10-20) BUN (7-21) mg/dL Creatinine (0.5-1.4) mg/dL Est GFR ( Amer) Est GFR (Non-Af Amer) Random Glucose (70-110) mg/dL Calcium (8.4-10.5) mg/dL Phosphorus 2.4 L (2.5-4.5) mg/dL Magnesium 1.8 (1.7-2.2) mg/dL Total Bilirubin (0.2-1.3) mg/dL AST (15-39) U/L ALT (7-56) U/L Alkaline Phosphatase (38-133) U/L Total Protein (5.8-8.3) g/dL Albumin (3.0-4.8) g/dL Globulin gm/dL Albumin/Globulin Ratio (1.1-1.8) 03/19/17 03/19/17 03/18/17 Range/Units 05:15 05:15 23:55 WBC (4.5-11.0) 10^3/ul RBC (3.5-6.1) 10^6/uL Hgb (12.0-16.0) gm/dL Hct (36.0-48.0) % MCV (80.0-105.0) fL MCH (25.0-35.0) pg MCHC (31.0-37.0) g/dl RDW (11.5-14.5) % Plt Count (120.0-450.0) 10^3/uL MPV (7.0-11.0) fl PT 11.2 (9.9-11.8) Seconds INR 1.04 (0.93-1.08) Sodium 142 141 (132-148) mmol/L Potassium 3.0 L 3.5 L (3.6-5.0) mmol/L Chloride 112 H 111 H (98-107) mmol/L Carbon Dioxide 22 21 (21-33) mmol/L Anion Gap 11 13 (10-20) BUN 10 11 (7-21) mg/dL Creatinine 0.5 0.6 (0.5-1.4) mg/dL Est GFR ( Amer) > 60 > 60 Est GFR (Non-Af Amer) > 60 > 60 Random Glucose 106 112 H (70-110) mg/dL Calcium 10.1 10.7 H (8.4-10.5) mg/dL Phosphorus (2.5-4.5) mg/dL Magnesium 1.8 (1.7-2.2) mg/dL Total Bilirubin 0.6 0.9 (0.2-1.3) mg/dL AST 18 20 (15-39) U/L ALT 32 31 (7-56) U/L Alkaline Phosphatase 85 97 (38-133) U/L Total Protein 5.7 L 6.0 (5.8-8.3) g/dL Albumin 3.2 3.4 (3.0-4.8) g/dL Globulin 2.5 2.6 gm/dL Albumin/Globulin Ratio 1.3 1.3 (1.1-1.8) 03/18/17 03/18/17 03/18/17 Range/Units 23:55 20:15 16:21 WBC 5.5 D 4.4 L 4.2 L (4.5-11.0) 10^3/ul RBC 3.80 3.90 3.73 (3.5-6.1) 10^6/uL Hgb 11.0 L 11.5 L 11.0 L (12.0-16.0) gm/dL Hct 32.8 L 34.0 L 32.9 L (36.0-48.0) % MCV 86.3 87.2 88.2 (80.0-105.0) fL MCH 28.9 29.5 29.5 (25.0-35.0) pg MCHC 33.5 33.8 33.4 (31.0-37.0) g/dl RDW 13.9 14.1 14.0 (11.5-14.5) % Plt Count 196 192 173 (120.0-450.0) 10^3/uL MPV 11.3 H 11.2 H 11.5 H (7.0-11.0) fl PT (9.9-11.8) Seconds INR (0.93-1.08) Sodium (132-148) mmol/L Potassium (3.6-5.0) mmol/L Chloride (98-107) mmol/L Carbon Dioxide (21-33) mmol/L Anion Gap (10-20) BUN (7-21) mg/dL Creatinine (0.5-1.4) mg/dL Est GFR ( Amer) Est GFR (Non-Af Amer) Random Glucose (70-110) mg/dL Calcium (8.4-10.5) mg/dL Phosphorus (2.5-4.5) mg/dL Magnesium (1.7-2.2) mg/dL Total Bilirubin (0.2-1.3) mg/dL AST (15-39) U/L ALT (7-56) U/L Alkaline Phosphatase (38-133) U/L Total Protein (5.8-8.3) g/dL Albumin (3.0-4.8) g/dL Globulin gm/dL Albumin/Globulin Ratio (1.1-1.8) Laboratory Results - last 24 hr 03/18/17 03/18/17 03/18/17 16:21 20:15 23:55 WBC 4.2 L 4.4 L 5.5 D RBC 3.73 3.90 3.80 Hgb 11.0 L 11.5 L 11.0 L Hct 32.9 L 34.0 L 32.8 L MCV 88.2 87.2 86.3 MCH 29.5 29.5 28.9 MCHC 33.4 33.8 33.5 RDW 14.0 14.1 13.9 Plt Count 173 192 196 MPV 11.5 H 11.2 H 11.3 H PT INR Sodium Potassium Chloride Carbon Dioxide Anion Gap BUN Creatinine Est GFR ( Amer) Est GFR (Non-Af Amer) Random Glucose Calcium Phosphorus Magnesium Total Bilirubin AST ALT Alkaline Phosphatase Total Protein Albumin Globulin Albumin/Globulin Ratio 03/18/17 03/19/17 03/19/17 23:55 05:15 05:15 WBC RBC Hgb Hct MCV MCH MCHC RDW Plt Count MPV PT 11.2 INR 1.04 Sodium 141 142 Potassium 3.5 L 3.0 L Chloride 111 H 112 H Carbon Dioxide 21 22 Anion Gap 13 11 BUN 11 10 Creatinine 0.6 0.5 Est GFR ( Amer) > 60 > 60 Est GFR (Non-Af Amer) > 60 > 60 Random Glucose 112 H 106 Calcium 10.7 H 10.1 Phosphorus Magnesium 1.8 Total Bilirubin 0.9 0.6 AST 20 18 ALT 31 32 Alkaline Phosphatase 97 85 Total Protein 6.0 5.7 L Albumin 3.4 3.2 Globulin 2.6 2.5 Albumin/Globulin Ratio 1.3 1.3 03/19/17 03/19/17 03/19/17 05:15 06:00 07:50 WBC 5.0 RBC 3.59 Hgb 10.5 L Hct 31.0 L MCV 86.4 MCH 29.2 MCHC 33.9 RDW 14.0 Plt Count 169 MPV 11.4 H PT INR Sodium Potassium Chloride Carbon Dioxide Anion Gap BUN Creatinine Est GFR ( Amer) Est GFR (Non-Af Amer) Random Glucose Calcium Phosphorus 2.4 L Magnesium 1.8 Total Bilirubin AST ALT Alkaline Phosphatase Total Protein Albumin Globulin Albumin/Globulin Ratio EKG/Cardiology Studies: Cardiology / EKG Studies 03/18/17 23:00 EKG [ELECTROCARDIOGRAM] Stat Comment: Reason For Exam: chest pain PRE OP:: N Does Patient Have a Pacemaker?: No 03/19/17 07:00 EKG [ELECTROCARDIOGRAM] Routine Comment: Reason For Exam: tachycardia Review of Systems - Review of Systems All systems: reviewed and no additional remarkable complaints except (as per HPI ) - Constitutional Constitutional: absent: Fever, Chills - EENT Eyes: UNREMARKABLE - Cardiovascular Cardiovascular: UNREMARKABLE - Respiratory Respiratory: UNREMARKABLE - Gastrointestinal Gastrointestinal: As Per HPI - Genitourinary Genitourinary: UNREMARKABLE - Musculoskeletal Musculoskeletal: Back Pain. absent: Numbness, Tingling - Integumentary Integumentary: UNREMARKABLE - Neurological Neurological: absent: Numbness, Syncope, Tingling - Psychiatric Psychiatric: Anxiety Critical Care Progress Note - Nutrition Nutrition: Nutrition Category Date Time Status Liquid Diet [DIET] Diets 03/18/17 Lunch Ordered Assessment/Plan - Assessment and Plan (Free Text) Assessment: 76F with PMH of HTN in the ICU for Acute GI bleed and HTN Neuro Pt AA&Ox3, complaining of headache and chronic neck pain CNII-XII intact Tylenol and hot packs for neck pain/headache Continue to monitor Cardio: Burning chest pain overnight now resolved, tachycardia/HTN overnight resolved, EKG: Occasional PAC's and LVH. Bloodly BM's continue, bleeding scan did not show significan bleed, Hgb dropping but still adequte, going for EGD and colonoscopy today RRR, S1/S2+, no murmurs Continue to monitor vitals and hgb, hydralazine IV PRN for HTN, correct electrolyte abnormalties PRN, protonix for possible GERD Follow up scope results, transfuse PRN Pulm: No respiratory distress, no complaints, CTAB Continue to monitor GI: Denies pain, persistent bloody BM's, going for EGD and colonoscopy today, HGB trending down but adequate for now, bleeding scan as described above F/u scopes reports, continue to trend Hgb, transfuse PRN, Protonix Nephro/electrolytes K 3.0 this AM, Mg 1.8, Phosph 2.4 Replete K and phosph Repeat CMP at 1200 ID: no fevers, chills, WBC wnl Continue to monitor PPX: protonix, SCD's Patient seen and discussed with attending <Víctor DUMONT,Scooby H - Last Filed: 03/19/17 13:20> CCU Objective - Vital Signs / Intake & Output Intake and Output (Last 8hrs): Intake & Output 03/18/17 03/19/17 03/19/17 22:59 06:59 14:59 Intake Total 1440 Balance 1440 Weight 173 lb 6.4 oz Intake: IV 1200 Right Forearm 1200 Oral 0 Other 240 Other: Voiding Method Bedside Commode # Bowel Movements 10 - Medications Active Medications: Active Medications Generic Name Dose Route Start Last Admin Trade Name Freq PRN Reason Stop Dose Admin Hydralazine HCl 10 mg 03/18/17 01:21 03/18/17 03:33 Apresoline IVP 10 mg Q6 PRN Administration Systolic Blood Pressure Pantoprazole Sodium 40 mg in 100 mls @ 20 mls/hr 03/18/17 00:45 03/19/17 04: 24 Protonix 40mg Ivpb IVPB 20 mls/hr .Q5H IRVIN Administration Sodium Chloride 1,000 mls @ 100 mls/hr 03/18/17 00:45 03/19/17 01:10 Sodium Chloride 0.9% IV 100 mls/hr .Q10H IRVIN Administration Ondansetron HCl 4 mg 03/18/17 00:45 Zofran Inj IVP Q4H PRN Nausea/Vomiting - Patient Studies Lab Studies: Microbiology Studies 03/18/17 05:30 MRSA Culture (Admit) - Final Nose MRSA NOT DETECTED Lab Studies 03/19/17 03/19/17 03/19/17 Range/Units 12:29 12:29 07:50 WBC 4.2 L (4.5-11.0) 10^3/ul RBC 3.43 L (3.5-6.1) 10^6/uL Hgb 10.2 L (12.0-16.0) gm/dL Hct 29.9 L (36.0-48.0) % MCV 87.2 (80.0-105.0) fL MCH 29.7 (25.0-35.0) pg MCHC 34.1 (31.0-37.0) g/dl RDW 14.2 (11.5-14.5) % Plt Count 169 (120.0-450.0) 10^3/uL MPV 11.0 (7.0-11.0) fl Gran % 59.9 (50.0-68.0) % Lymph % (Auto) 25.9 (22.0-35.0) % [place] % (Auto) 11.6 H (1.0-6.0) % Eos % (Auto) 2.1 (1.5-5.0) % Baso % (Auto) 0.5 (0.0-3.0) % Gran # 2.52 (1.4-6.5) Lymph # 1.1 L (1.2-3.4) [place] # 0.5 (0.1-0.6) Eos # 0.1 (0.0-0.7) Baso # 0.02 (0.0-2.0) K/mm3 PT (9.9-11.8) Seconds INR (0.93-1.08) Sodium 141 (132-148) mmol/L Potassium 4.0 (3.6-5.0) mmol/L Chloride 112 H (98-107) mmol/L Carbon Dioxide 21 (21-33) mmol/L Anion Gap 12 (10-20) BUN 9 (7-21) mg/dL Creatinine 0.6 (0.5-1.4) mg/dL Est GFR ( Amer) > 60 Est GFR (Non-Af Amer) > 60 Random Glucose 88 (70-110) mg/dL Calcium 10.4 (8.4-10.5) mg/dL Phosphorus (2.5-4.5) mg/dL Magnesium 1.8 (1.7-2.2) mg/dL Total Bilirubin 0.5 (0.2-1.3) mg/dL AST 17 (15-39) U/L ALT 28 (7-56) U/L Alkaline Phosphatase 86 (38-133) U/L Total Protein 5.5 L (5.8-8.3) g/dL Albumin 3.3 (3.0-4.8) g/dL Globulin 2.3 gm/dL Albumin/Globulin Ratio 1.4 (1.1-1.8) 03/19/17 03/19/17 03/19/17 Range/Units 06:00 05:15 05:15 WBC 5.0 (4.5-11.0) 10^3/ul RBC 3.59 (3.5-6.1) 10^6/uL Hgb 10.5 L (12.0-16.0) gm/dL Hct 31.0 L (36.0-48.0) % MCV 86.4 (80.0-105.0) fL MCH 29.2 (25.0-35.0) pg MCHC 33.9 (31.0-37.0) g/dl RDW 14.0 (11.5-14.5) % Plt Count 169 (120.0-450.0) 10^3/uL MPV 11.4 H (7.0-11.0) fl Gran % (50.0-68.0) % Lymph % (Auto) (22.0-35.0) % [place] % (Auto) (1.0-6.0) % Eos % (Auto) (1.5-5.0) % Baso % (Auto) (0.0-3.0) % Gran # (1.4-6.5) Lymph # (1.2-3.4) [place] # (0.1-0.6) Eos # (0.0-0.7) Baso # (0.0-2.0) K/mm3 PT 11.2 (9.9-11.8) Seconds INR 1.04 (0.93-1.08) Sodium (132-148) mmol/L Potassium (3.6-5.0) mmol/L Chloride (98-107) mmol/L Carbon Dioxide (21-33) mmol/L Anion Gap (10-20) BUN (7-21) mg/dL Creatinine (0.5-1.4) mg/dL Est GFR ( Amer) Est GFR (Non-Af Amer) Random Glucose (70-110) mg/dL Calcium (8.4-10.5) mg/dL Phosphorus 2.4 L (2.5-4.5) mg/dL Magnesium (1.7-2.2) mg/dL Total Bilirubin (0.2-1.3) mg/dL AST (15-39) U/L ALT (7-56) U/L Alkaline Phosphatase (38-133) U/L Total Protein (5.8-8.3) g/dL Albumin (3.0-4.8) g/dL Globulin gm/dL Albumin/Globulin Ratio (1.1-1.8) 03/19/17 03/18/17 03/18/17 Range/Units 05:15 23:55 23:55 WBC 5.5 D (4.5-11.0) 10^3/ul RBC 3.80 (3.5-6.1) 10^6/uL Hgb 11.0 L (12.0-16.0) gm/dL Hct 32.8 L (36.0-48.0) % MCV 86.3 (80.0-105.0) fL MCH 28.9 (25.0-35.0) pg MCHC 33.5 (31.0-37.0) g/dl RDW 13.9 (11.5-14.5) % Plt Count 196 (120.0-450.0) 10^3/uL MPV 11.3 H (7.0-11.0) fl Gran % (50.0-68.0) % Lymph % (Auto) (22.0-35.0) % [place] % (Auto) (1.0-6.0) % Eos % (Auto) (1.5-5.0) % Baso % (Auto) (0.0-3.0) % Gran # (1.4-6.5) Lymph # (1.2-3.4) [place] # (0.1-0.6) Eos # (0.0-0.7) Baso # (0.0-2.0) K/mm3 PT (9.9-11.8) Seconds INR (0.93-1.08) Sodium 142 141 (132-148) mmol/L Potassium 3.0 L 3.5 L (3.6-5.0) mmol/L Chloride 112 H 111 H (98-107) mmol/L Carbon Dioxide 22 21 (21-33) mmol/L Anion Gap 11 13 (10-20) BUN 10 11 (7-21) mg/dL Creatinine 0.5 0.6 (0.5-1.4) mg/dL Est GFR ( Amer) > 60 > 60 Est GFR (Non-Af Amer) > 60 > 60 Random Glucose 106 112 H (70-110) mg/dL Calcium 10.1 10.7 H (8.4-10.5) mg/dL Phosphorus (2.5-4.5) mg/dL Magnesium 1.8 (1.7-2.2) mg/dL Total Bilirubin 0.6 0.9 (0.2-1.3) mg/dL AST 18 20 (15-39) U/L ALT 32 31 (7-56) U/L Alkaline Phosphatase 85 97 (38-133) U/L Total Protein 5.7 L 6.0 (5.8-8.3) g/dL Albumin 3.2 3.4 (3.0-4.8) g/dL Globulin 2.5 2.6 gm/dL Albumin/Globulin Ratio 1.3 1.3 (1.1-1.8) 03/18/17 03/18/17 Range/Units 20:15 16:21 WBC 4.4 L 4.2 L (4.5-11.0) 10^3/ul RBC 3.90 3.73 (3.5-6.1) 10^6/uL Hgb 11.5 L 11.0 L (12.0-16.0) gm/dL Hct 34.0 L 32.9 L (36.0-48.0) % MCV 87.2 88.2 (80.0-105.0) fL MCH 29.5 29.5 (25.0-35.0) pg MCHC 33.8 33.4 (31.0-37.0) g/dl RDW 14.1 14.0 (11.5-14.5) % Plt Count 192 173 (120.0-450.0) 10^3/uL MPV 11.2 H 11.5 H (7.0-11.0) fl Gran % (50.0-68.0) % Lymph % (Auto) (22.0-35.0) % [place] % (Auto) (1.0-6.0) % Eos % (Auto) (1.5-5.0) % Baso % (Auto) (0.0-3.0) % Gran # (1.4-6.5) Lymph # (1.2-3.4) [place] # (0.1-0.6) Eos # (0.0-0.7) Baso # (0.0-2.0) K/mm3 PT (9.9-11.8) Seconds INR (0.93-1.08) Sodium (132-148) mmol/L Potassium (3.6-5.0) mmol/L Chloride (98-107) mmol/L Carbon Dioxide (21-33) mmol/L Anion Gap (10-20) BUN (7-21) mg/dL Creatinine (0.5-1.4) mg/dL Est GFR ( Amer) Est GFR (Non-Af Amer) Random Glucose (70-110) mg/dL Calcium (8.4-10.5) mg/dL Phosphorus (2.5-4.5) mg/dL Magnesium (1.7-2.2) mg/dL Total Bilirubin (0.2-1.3) mg/dL AST (15-39) U/L ALT (7-56) U/L Alkaline Phosphatase (38-133) U/L Total Protein (5.8-8.3) g/dL Albumin (3.0-4.8) g/dL Globulin gm/dL Albumin/Globulin Ratio (1.1-1.8) Laboratory Results - last 24 hr 03/18/17 03/18/17 03/18/17 16:21 20:15 23:55 WBC 4.2 L 4.4 L 5.5 D RBC 3.73 3.90 3.80 Hgb 11.0 L 11.5 L 11.0 L Hct 32.9 L 34.0 L 32.8 L MCV 88.2 87.2 86.3 MCH 29.5 29.5 28.9 MCHC 33.4 33.8 33.5 RDW 14.0 14.1 13.9 Plt Count 173 192 196 MPV 11.5 H 11.2 H 11.3 H Gran % Lymph % (Auto) [place] % (Auto) Eos % (Auto) Baso % (Auto) Gran # Lymph # [place] # Eos # Baso # PT INR Sodium Potassium Chloride Carbon Dioxide Anion Gap BUN Creatinine Est GFR ( Amer) Est GFR (Non-Af Amer) Random Glucose Calcium Phosphorus Magnesium Total Bilirubin AST ALT Alkaline Phosphatase Total Protein Albumin Globulin Albumin/Globulin Ratio 03/18/17 03/19/17 03/19/17 23:55 05:15 05:15 WBC RBC Hgb Hct MCV MCH MCHC RDW Plt Count MPV Gran % Lymph % (Auto) [place] % (Auto) Eos % (Auto) Baso % (Auto) Gran # Lymph # [place] # Eos # Baso # PT 11.2 INR 1.04 Sodium 141 142 Potassium 3.5 L 3.0 L Chloride 111 H 112 H Carbon Dioxide 21 22 Anion Gap 13 11 BUN 11 10 Creatinine 0.6 0.5 Est GFR ( Amer) > 60 > 60 Est GFR (Non-Af Amer) > 60 > 60 Random Glucose 112 H 106 Calcium 10.7 H 10.1 Phosphorus Magnesium 1.8 Total Bilirubin 0.9 0.6 AST 20 18 ALT 31 32 Alkaline Phosphatase 97 85 Total Protein 6.0 5.7 L Albumin 3.4 3.2 Globulin 2.6 2.5 Albumin/Globulin Ratio 1.3 1.3 03/19/17 03/19/17 03/19/17 05:15 06:00 07:50 WBC 5.0 RBC 3.59 Hgb 10.5 L Hct 31.0 L MCV 86.4 MCH 29.2 MCHC 33.9 RDW 14.0 Plt Count 169 MPV 11.4 H Gran % Lymph % (Auto) [place] % (Auto) Eos % (Auto) Baso % (Auto) Gran # Lymph # [place] # Eos # Baso # PT INR Sodium Potassium Chloride Carbon Dioxide Anion Gap BUN Creatinine Est GFR ( Amer) Est GFR (Non-Af Amer) Random Glucose Calcium Phosphorus 2.4 L Magnesium 1.8 Total Bilirubin AST ALT Alkaline Phosphatase Total Protein Albumin Globulin Albumin/Globulin Ratio 03/19/17 03/19/17 12:29 12:29 WBC 4.2 L RBC 3.43 L Hgb 10.2 L Hct 29.9 L MCV 87.2 MCH 29.7 MCHC 34.1 RDW 14.2 Plt Count 169 MPV 11.0 Gran % 59.9 Lymph % (Auto) 25.9 [place] % (Auto) 11.6 H Eos % (Auto) 2.1 Baso % (Auto) 0.5 Gran # 2.52 Lymph # 1.1 L [place] # 0.5 Eos # 0.1 Baso # 0.02 PT INR Sodium 141 Potassium 4.0 Chloride 112 H Carbon Dioxide 21 Anion Gap 12 BUN 9 Creatinine 0.6 Est GFR ( Amer) > 60 Est GFR (Non-Af Amer) > 60 Random Glucose 88 Calcium 10.4 Phosphorus Magnesium Total Bilirubin 0.5 AST 17 ALT 28 Alkaline Phosphatase 86 Total Protein 5.5 L Albumin 3.3 Globulin 2.3 Albumin/Globulin Ratio 1.4 EKG/Cardiology Studies: Cardiology / EKG Studies 03/18/17 23:00 EKG [ELECTROCARDIOGRAM] Stat Comment: Reason For Exam: chest pain PRE OP:: N Does Patient Have a Pacemaker?: No 03/19/17 07:00 EKG [ELECTROCARDIOGRAM] Routine Comment: Reason For Exam: tachycardia Critical Care Progress Note - Ventilator Checklist Head of Bed 30 Degrees: Yes Daily Sedation Vacation: Yes Daily Assessment of Readiness to Wean: Yes Daily Spontaneous Breathing Trial: Yes PUD Prophalyxis: Yes - Nutrition Nutrition: Nutrition Category Date Time Status Liquid Diet [DIET] Diets 03/18/17 Lunch Ordered Attending/Attestation - Attestation I have personally seen and examined this patient.: Yes I have fully participated in the care of the patient.: Yes I have reviewed all pertinent clinical information: Yes Notes (Text): 03/19/17 13:16 76 y/o F admitted to the ICU for G.I bleed . Yesterday was sent out for transfer , but at the request of the PCP, the patient's transfer was held due to HTN?? This morning seen comfortable, w/o any issues walking in her room w/o her leads on . No further extensive bleeding noted. HGB Stable, ON PPI BID/ GGT NPO. Keep hgb> 7. Platelets > 50k HTN medications were placed on hold, now on IV medications pending EGD. Post EGD , if stable without any new overt bleeding or hemodynamic instability, the patient can be transfered to the medical floors cc time 35 min
[2017-03-19 12:30] LABS: ADD MANUAL DIFF? NO
[2017-03-19 12:34] LABS: BASO # 0.02 K/mm3 (0.0-2.0); BASO % 0.5 % (0.0-3.0); EOS # 0.1 (0.0-0.7); EOS % 2.1 % (1.5-5.0); GRAN # 2.52 (1.4-6.5); GRAN % 59.9 % (50.0-68.0); HEMATOCRIT 29.9 % (36.0-48.0); LYMPH # 1.1 (1.2-3.4); LYMPH % 25.9 % (22.0-35.0); MEAN CELL VOLUME 87.2 fL (80.0-105.0); MEAN CORPUSCULAR HEMOGLOBIN 29.7 pg (25.0-35.0); MEAN CORPUSCULAR HGB CONC 34.1 g/dl (31.0-37.0); MONO # 0.5 (0.1-0.6); MONO % 11.6 % (1.0-6.0); PLATELET COUNT 169 10^3/uL (120.0-450.0); RED CELL DISTRIBUTION WIDTH 14.2 % (11.5-14.5); WHITE BLOOD COUNT 4.2 10^3/ul (4.5-11.0)
[2017-03-19 12:44] LABS: ALB/GLOB RATIO 1.4 (1.1-1.8); ALKALINE PHOSPHATASE 86 U/L (38-133); ALT/SGPT 28 U/L (7-56); AST/SGOT 17 U/L (15-39); BILIRUBIN,TOTAL 0.5 mg/dL (0.2-1.3); BLOOD UREA NITROGEN 9 mg/dL (7-21); CALCIUM 10.4 mg/dL (8.4-10.5); CARBON DIOXIDE 21 mmol/L (21-33); CHLORIDE 112 mmol/L (98-107); GFR AFRICAN-AMERICAN > 60; GLUCOSE,RANDOM 88 mg/dL (70-110); SODIUM 141 mmol/L (132-148); TOTAL PROTEIN 5.5 g/dL (5.8-8.3)
--- NOTE | 2017-03-19 14:40 | HP ---
HISTORY OF PRESENT ILLNESS: The patient is a 76-year-old female who presented to the Emergency Room complaining of bright red blood per rectum. She noted large amounts of blood, some of which she was incontinent of from the rectum. I suggested hospitalization. She presented to the Emergency Room, w as evaluated and admitted. PAST MEDICAL HISTORY: Positive for hypertension, sciatica, spinal stenosis, osteoarthritis, overacti ve bladder, anxiety and depression. She had injections into the L1-L4 area in 06/2016. MEDICATIONS: At the time of admission medications included amlodipine and benazepril 10/20 once a da y, metoprolol tartrate 25 mg twice a day, VESIcare 5 mg once a day and Celebrex 200 mg once a day. S he had a history of being on oxycodone 5 mg 3 times a day in the past as well as Naprosyn 500 mg twic e a day; however, it is believed that these have not been used recently. ALLERGIES: She has no known medical allergies. SOCIAL HISTORY: Never smoked cigarettes. Drinks alcohol very rarely and only socially, does not dri nk coffee. She follows a regular diet. She is retired, a and has 4 children. PHYSICAL EXAMINATION: HEENT: Unremarkable. NECK: Supple, no lymphadenopathy, no goiter. LUNGS: Clear to auscultation and percussion. HEART: Regular, no murmurs are appreciated. ABDOMEN: Soft and nontender. Bowel sounds are normal. There is no organomegaly. RECTAL: Positive for obvious blood. EXTREMITIES: Free of cyanosis, clubbing or edema. VITAL SIGNS: Her blood pressure is 187/86, heart rate is 79 and she is afebrile. LABORATORY STUDIES: Showed white blood cell count of 5.7, hemoglobin and hematocrit are 14.0 and 41. 3, platelet count is 206. Sodium is 143, potassium 3.7, BUN and creatinine are 16 and 0.8 respective ly. Chest x-ray showed no acute disease. CAT scan of the abdomen showed diverticulosis of the sigmo id colon with no signs of diverticulitis. So the patient is admitted because she continued to have a massive bloody bowel movements in the [facility], she was admitted to the intensive care unit where she will be followed closely. Consulta tion from Dr. Sim, the tray checker, as well as Dr. Sen, the surgeon, is requested. The patient is typed and crossed. She has O positive type blood and blood scan is ordered, the resul ts are pending. Chong Good MD cc: [id number] TT: 03/19/2017 14:39:36 jn
[2017-03-19] MEDS ORDERED: Propofol 10 mg/ml Inj (20 ML) ONE (14:45)
--- NOTE | 2017-03-19 14:45 | PN ---
DATE: 03/19/2017 The patient is a 76-year-old female who was admitted to the intensive care unit of the [facility] 2 days ago with bright red blood per rectum. She is known to have a history of hy pertension, sciatica, spinal stenosis, osteoarthritis, overactive bladder, anxiety and depression. D uring her hospital stay, we have been following her serial H and H's, initial hemoglobin of 14, dropp ed down to 12.5; however, this morning it is down a bit further to 10.5, hematocrit is 31.0. This mo rning's potassium was also depressed at 3.0. She had a bout of anxiety with her blood pressure risin g as high as 190/120 with a heart rate of 96. This was treated with Ativan. She is also started on lisinopril 20 mg. The patient had completed the prep for a pending colonoscopy later on today with Elias Mills, her block captain. When seen, the patient is awake, alert, and oriented. She is in good spirits. She admits to small a judah of bloody stools; however, denies abdominal pain or bloating. Her potassium has been suppleme nted. We continue to follow her H and H. She is O positive type blood. We will follow up with kelin roenterology post-colonoscopy. At this point, we are expecting a bleed from a diverticulum in the sig moid colon. Chong Good MD cc: [id number] TT: 03/19/2017 14:44:42 Confirmation # [id number] Dictation # [id number] hector
[2017-03-19] MEDS ORDERED: Midazolam 2 MG/2 ML VIAL ONE (14:46)
[2017-03-19] MEDS ORDERED: Etomidate 20 mg/10ml Inj IV ONE (14:46)
[2017-03-19] MEDS ORDERED: Esmolol 100 mg/10ml Inj IV ONE ×2 (14:56→14:57)
[2017-03-19] MEDS ORDERED: Methylene Blue 10 mg/ml (1ml) Inj ONE (15:54)
[2017-03-20] MEDS: Pantoprazole 40mg/100ml IVPB 40 MG/100 ML BAG IVPB SCH ×2 (01:05→07:15)
[2017-03-20] MEDS: Sodium Chloride 0.9% 1,000 ML IV SCH (03:45)
[2017-03-20 06:06] LABS: ADD MANUAL DIFF? NO
[2017-03-20 06:08] LABS: BASO # 0.03 K/mm3 (0.0-2.0); BASO % 0.9 % (0.0-3.0); EOS # 0.2 (0.0-0.7); EOS % 6.4 % (1.5-5.0); GRAN # 1.74 (1.4-6.5); GRAN % 53.5 % (50.0-68.0); HEMATOCRIT 29.4 % (36.0-48.0); LYMPH % 29.1 % (22.0-35.0); MEAN CELL VOLUME 87.2 fL (80.0-105.0); MEAN CORPUSCULAR HEMOGLOBIN 29.1 pg (25.0-35.0); MEAN CORPUSCULAR HGB CONC 33.3 g/dl (31.0-37.0); MEAN PLATELET VOLUME 10.9 fl (7.0-11.0); MONO # 0.3 (0.1-0.6); MONO % 10.1 % (1.0-6.0); PLATELET COUNT 156 10^3/uL (120.0-450.0); RED CELL DISTRIBUTION WIDTH 14.2 % (11.5-14.5); WHITE BLOOD COUNT 3.3 10^3/ul (4.5-11.0)
[2017-03-20 06:24] LABS: ALB/GLOB RATIO 1.3 (1.1-1.8); ALKALINE PHOSPHATASE 85 U/L (38-133); ALT/SGPT 29 U/L (7-56); AST/SGOT 24 U/L (15-39); BILIRUBIN,TOTAL 0.7 mg/dL (0.2-1.3); BLOOD UREA NITROGEN 5 mg/dL (7-21); CALCIUM 10.1 mg/dL (8.4-10.5); CARBON DIOXIDE 21 mmol/L (21-33); CHLORIDE 114 mmol/L (98-107); GFR AFRICAN-AMERICAN > 60; GLUCOSE,RANDOM 80 mg/dL (70-110); POTASSIUM 3.2 mmol/L (3.6-5.0); SODIUM 141 mmol/L (132-148); TOTAL PROTEIN 5.5 g/dL (5.8-8.3)
[2017-03-20 07:24] VITALS: RESP 25; O2SAT 82
[2017-03-20 08:26] VITALS: TEMP 98
--- NOTE | 2017-03-20 08:39 | CP.PCM.PN ---
Subjective - Date & Time of Evaluation Date of Evaluation: 03/20/17 Time of Evaluation: 07:50 - Subjective Subjective: General Surgery Dr. Mckinley Marmolejo S&E @bedside. pt has colonoscopy and EGD yesterday. NAEO. pt denies new BRBPR. no abd pain, N/V. tolerating CLD. want to go home later today for Mother' s Day tomorrow. Objective - Vital Signs/Intake and Output Vital Signs (last 24 hours): Temp Pulse Resp BP Pulse Ox 98 F 88 25 H 150/82 82 L 03/20/17 08:00 03/20/17 07:20 03/20/17 07:20 03/20/17 07:08 03/20/17 07:20 Intake and Output: 03/20/17 03/20/17 06:59 18:59 Intake Total 1330 Balance 1330 - Medications Medications: Current Medications Hydralazine HCl (Apresoline) 10 mg IVP Q6 PRN PRN Reason: Systolic Blood Pressure Last Admin: 03/18/17 03:33 Dose: 10 mg Pantoprazole Sodium (Protonix 40mg Ivpb) 40 mg in 100 mls @ 20 mls/hr IVPB .Q5H IRVIN Last Admin: 03/20/17 07:15 Dose: 20 mls/hr Sodium Chloride (Sodium Chloride 0.9%) 1,000 mls @ 100 mls/hr IV .Q10H IRVIN Last Admin: 03/20/17 03:45 Dose: 100 mls/hr Ondansetron HCl (Zofran Inj) 4 mg IVP Q4H PRN PRN Reason: Nausea/Vomiting - Labs Labs: 03/20/17 05:30 03/20/17 05:30 PT 11.2 Seconds (9.9-11.8) 03/19/17 05:15 INR 1.04 (0.93-1.08) 03/19/17 05:15 APTT 25.2 Seconds (23.7-30.8) 03/17/17 19:07 - Constitutional Appears: Non-toxic, No Acute Distress - Head Exam Head Exam: NORMAL INSPECTION - Eye Exam Eye Exam: Normal appearance - ENT Exam ENT Exam: Mucous Membranes Moist - Respiratory Exam Respiratory Exam: NORMAL BREATHING PATTERN. absent: Accessory Muscle Use, Respiratory Distress - Cardiovascular Exam Cardiovascular Exam: Irregular Rhythm. absent: Bradycardia, Tachycardia - GI/Abdominal Exam GI & Abdominal Exam: Soft. absent: Distended, Tenderness - Neurological Exam Neurological Exam: Alert, Awake, Oriented x3 - Psychiatric Exam Psychiatric exam: Normal Affect, Normal Mood - Skin Skin Exam: Dry, Intact, Normal Color, Warm Assessment and Plan - Assessment and Plan (Free Text) Assessment: 76 y/o F w/ GI bleeding s/p EGD/colonoscopy - f/u GI recs - monitor H/H - stable - transfuse per primary - advance diet per GI - cont GI/DVT PPx Pt discussed w/ Dr. Mckinley Dickerson DO PGY1
[2017-03-20 09:57] VITALS: BP 171/77; PULSE 86
[2017-03-20] MEDS ORDERED: Potassium Chloride 20 mEq ER Tab PO ONE (10:21)
[2017-03-20] MEDS ORDERED: Non Formulary Medication (Amlodipine Besylate/Benazepr [Lotrel 10 Mg-20 Mg] 1 CAP) PO SCH (22:00)
--- NOTE | 2017-04-19 21:57 | DS ---
The patient is a 76-year-old female who was admitted to the intensive care unit with bright red blood per rectum. She is known to have a history of hypertension, sciatica, spinal stenosis, osteoarthritis, overactive bladder, anxiety and depression. Her rectal bleed was quite brisk. Her hemoglobin had dropped down from 14 to 12.5. She was stabilized in the intensive care unit. Her blood pressure was managed. Her anxiety was treated with Ativan. She was also started on lisinopril 20 mg for blood pressure control. She underwent colonoscopy with Dr. Mills, who found some diverticular disease, but no active source of bleeding. It was presumed that the patient had bled from a diverticulum in the sigmoid colon. So, as the patient is hemodynamically stable , arrangements were made for her to be discharged to home in an improved condition. She will be followed up as an outpatient closely. FINAL DIAGNOSES: 1. Diverticulosis without diverticulitis. 2. Anemia secondary to acute gastrointestinal bleed. 3. Hypertension. 4. Hypothyroid. Chong Good MD cc: [id number] TT: 04/19/2017 21:56:57 aram SIMON
== END 2017-03-20 14:18 | disposition home or self-care (01) | DRG 379 ==
LOC: ED 18:53 → ERH 21:50 → OBSVTOIN 21:50 → ERH 22:20 → CCU 03-18 03:18
PROVIDERS: ADMIT Internal Medicine; ATTEND Internal Medicine
PROC: 0DB68ZX Excision of Stomach, Via Natural or Artificial Opening Endoscopic, Diagnostic (ICD-10-PCS; principal; 2017-03-19 11:00)
PROC: 0DBK8ZZ Excision of Ascending Colon, Via Natural or Artificial Opening Endoscopic (ICD-10-PCS; 2017-03-19 11:00)
DX: K57.31 Diverticulosis of large intestine without perforation or abscess with bleeding (principal); K22.2 Esophageal obstruction; I10 Essential (primary) hypertension; K63.5 Polyp of colon; N32.81 Overactive bladder; E87.6 Hypokalemia; M54.30 Sciatica, unspecified side; M48.00 Spinal stenosis, site unspecified; M19.90 Unspecified osteoarthritis, unspecified site; Z96.642 Presence of left artificial hip joint; R91.1 Solitary pulmonary nodule; F32.9 Major depressive disorder, single episode, unspecified; K44.9 Diaphragmatic hernia without obstruction or gangrene; K29.70 Gastritis, unspecified, without bleeding; K64.8 Other hemorrhoids; F41.9 Anxiety disorder, unspecified; Z86.010 Personal history of colon polyps; Z90.49 Acquired absence of other specified parts of digestive tract

== ENCOUNTER 2019-03-31 11:50 | Outpatient (CLI) | payer MEDICARE | END 2019-03-31 11:51 | disposition home or self-care (01) | LOC: CARDIO 11:50 ==